=== PATIENT | male | born 1955 | race Two or more races ===

== ENCOUNTER → 2019-03-18 | Outpatient (CLI) | payer OTHER ==
[2019-03-18 09:08] LABS: ALBUMIN 2.3 g/dL (3.4-5.0); CALCIUM 7.9 mg/dL (8.5-10.1); CREATININE 0.6 mg/dL (0.7-1.3); DIRECT BILIRUBIN 0.2 mg/dL (0.0-0.2); GFR 136.1; POTASSIUM 3.9 mmol/L (3.5-5.1); TOTAL BILIRUBIN 0.6 mg/dL (0.2-1.0)
[2019-03-18 09:16] LABS: BASO % 1 % (0-3); EOS # 0.2 x10^3/uL (0.0-0.7); EOS % 5 % (0-3); HEMATOCRIT 36.5 % (39.0-53.0); HEMOGLOBIN 11.5 g/dL (13.0-17.5); LYMPH # 0.7 x10^3/uL (1.0-4.8); LYMPH % 20 % (24-48); MEAN CORPUSCULAR HEMOGLOBIN 23 pg (25-35); MEAN CORPUSCULAR HGB CONC 32 g/dL (31-37); MEAN CORPUSCULAR VOLUME 72 fL (79-100); MONO # 0.5 x10^3/uL (0.0-1.1); MONO % 15 % (0-9); NEUT % 60 % (31-73); PLATELET COUNT 81 x10^3/uL (140-400); RED BLOOD COUNT 5.09 x10^6/uL (4.30-5.70); RED CELL DISTRIBUTION WIDTH 35.8 % (11.5-14.5); WHITE BLOOD COUNT 3.4 x10^3/uL (4.0-11.0)
[2019-03-18 09:37] LABS: PLT ESTIMATE DECREASED (ADEQUATE)
[2019-03-18 09:47] LABS: ANISOCYTOSIS MOD; HYPOCHROMIA SLIGHT; MICROCYTOSIS MOD; TOXIC VACUOLATION PRESENT
[2019-03-18 09:50] LABS: OVALOCYTES FEW; TEAR DROP CELLS OCC
[2019-03-18 09:52] LABS: POIKILOCYTOSIS PRESENT
== END | disposition home or self-care (01) ==
LOC: EEVIPCON 08:38 → SPEC 08:38
PROVIDERS: ATTEND Nurse Practitioner
DX: B18.2 Chronic viral hepatitis C (principal); B19.10 Unspecified viral hepatitis B without hepatic coma; Z95.828 Presence of other vascular implants and grafts
CPT/HCPCS: 36415; 80048; 80076; 82140; 85025

== ENCOUNTER → 2019-03-29 | Outpatient (CLI) | payer OTHER | END | disposition home or self-care (01) | LOC: SPEC 09:21 | PROVIDERS: ATTEND Nurse Practitioner | DX: B18.2 Chronic viral hepatitis C (principal); Z95.828 Presence of other vascular implants and grafts | CPT/HCPCS: 36415; 82140 ==

== ENCOUNTER → 2019-06-01 | Outpatient (CLI) | payer OTHER | END | disposition home or self-care (01) | LOC: SPEC 14:29 → EEVIPCON 14:29 | PROVIDERS: ATTEND Preventive Medicine Occupational Medicine | DX: R41.0 Disorientation, unspecified (principal) | CPT/HCPCS: 36415; 82140 ==

== ENCOUNTER → 2019-07-14 | Outpatient (CLI) | payer OTHER | LOC: SPEC 09:31 → EEVIPCON 09:31 | PROVIDERS: ATTEND Preventive Medicine Occupational Medicine | DX: B18.2 Chronic viral hepatitis C (principal) | CPT/HCPCS: 36415; 82140 ==